=== PATIENT | female | born 1960 | race Caucasian/White ===

== ENCOUNTER → 2018-02-10 | Outpatient (CLI) | payer BC ==
[~2018-02-10] MED LIST: BUDE10.2 IH; FAMO-119 PO; HYDR-34 PO; LEVO500T69 PO; NAPR-1070 PO; NORG1TAB14 PO; OMEP-10 PO; OMEP20TA7 PO; PRD20T PO; bcp; blue goo TP
--- NOTE | 2018-02-10 11:47 | Diagnostic Imaging Report ---
PROCEDURE: US left lower extremity venous. TECHNIQUE: Multiple real-time grayscale images were obtained over the left lower extremity in various projections. Additional duplex Doppler and color Doppler images were also obtained. INDICATION: Left leg pain. EXAMINATION: Grayscale and color Doppler evaluation of the deep veins of the left lower extremity were performed with waveform analysis. FINDINGS: Continuous venous flow is present. No intraluminal filling defect is identified. There is normal compressibility and response to augmentation. No abnormal perivascular fluid collection is identified. IMPRESSION: No ultrasound evidence of left lower extremity deep venous thrombosis. Dictated by: Dictated on workstation # [id number]
== END ==
LOC: RAD 10:12
PROVIDERS: ATTEND Nurse Practitioner Family
DX: M79.89 Other specified soft tissue disorders (principal); L53.9 Erythematous condition, unspecified; K21.9 Gastro-esophageal reflux disease without esophagitis; R53.83 Other fatigue; N39.0 Urinary tract infection, site not specified

== ENCOUNTER → 2020-01-20 | Outpatient (CLI) | payer BC ==
--- NOTE | 2020-01-20 16:11 | Diagnostic Imaging Report ---
INDICATION: Routine screening. COMPARISON: Prior mammogram from 01/18/2018 and 12/25/2016. EXAMINATION: 2D and 3D bilateral screening mammography was performed with CAD. The current study was also evaluated with a Computer Aided Detection (CAD) system. FINDINGS: Scattered fibroglandular densities are identified, bilaterally. The parenchymal pattern is stable. No mass or malignant appearing microcalcifications are seen. Axillae are unremarkable. IMPRESSION: No mammographic features suspicious for malignancy are identified. ACR BI-RADS Category 1: Negative. Result letter will be mailed to the patient. Note: At least 10% of breast cancer is not imaged by mammography. Dictated on workstation # [id number]
== END ==
LOC: RAD 09:00
PROVIDERS: ATTEND Family Medicine
DX: Z12.31 Encounter for screening mammogram for malignant neoplasm of breast (principal)
CPT/HCPCS: 77063; 77067

== ENCOUNTER → 2021-01-22 | Outpatient (CLI) | payer BC ==
--- NOTE | 2021-01-22 12:54 | Diagnostic Imaging Report ---
INDICATION: Routine screening. Comparison is made with prior mammogram from 01/20/2020 and 01/18/2018. 2-D and 3-D bilateral screening mammography was performed with CAD. Scattered fibroglandular densities are identified bilaterally. A tiny nodule has developed in the right breast posterior depth best seen at the nipple line on the CC view. Its difficult to see on the MLO view. No other masses are seen. No malignant-appearing microcalcifications are identified. Axillae are unremarkable. IMPRESSION: BI-RADS 0 Right breast density. Additional views are recommended for further evaluation. ACR BI-RADS Category 0: Incomplete. (Needs additional imaging evaluation). Result letter will be mailed to the patient. Note: At least 10% of breast cancer is not imaged by mammography. Dictated by: Dictated on workstation # [id number]
== END ==
LOC: RAD 09:00
PROVIDERS: ATTEND Family Medicine
DX: Z12.31 Encounter for screening mammogram for malignant neoplasm of breast (principal)
CPT/HCPCS: 77063; 77067

== ENCOUNTER → 2021-02-01 | Outpatient (CLI) | payer BC ==
--- NOTE | 2021-02-01 14:05 | Diagnostic Imaging Report ---
INDICATION: Right breast density. Correlation is made with diagnostic mammogram earlier same day and screening mammogram from 01/22/2021. Sonographic interrogation of the upper right breast was performed. No sonographic abnormality is seen. No solid or cystic mass is detected. IMPRESSION: BI-RADS Category 1 No sonographic abnormality is seen. Tiny density noted mammographically has decreased in size consistent with benign etiology. Is likely a tiny cyst not visible by ultrasound. Patient may return to routine annual screening mammography. ACR BI-RADS Category 1: Negative. Result letter will be mailed to the patient. Note: At least 10% of breast cancer is not imaged by mammography. Dictated by: Dictated on workstation # [id number]
--- NOTE | 2021-02-01 16:11 | Diagnostic Imaging Report ---
INDICATION: Right breast density. Patient presents for additional views. CORRELATION is made with screening study from 01/22/2021. Unilateral right 2-D and 3-D diagnostic mammography was performed with CAD. There is a tiny density approximately 7 cm from the nipple at the 12:00 location. This has decreased slightly in size since screening study. No other masses are detected. No suspicious microcalcifications are seen. IMPRESSION: BI-RADS 0 Tiny circumscribed density upper right breast approximately 12:00 location, 6-7 cm from the nipple. Further evaluation with ultrasound is recommended and will be performed today. ACR BI-RADS Category 0: Incomplete. (Needs additional imaging evaluation). Result letter will be mailed to the patient. Note: At least 10% of breast cancer is not imaged by mammography. Dictated by: Dictated on workstation # [id number]
== END ==
LOC: RAD 13:15
PROVIDERS: ATTEND Nurse Practitioner Family
DX: R92.2 Inconclusive mammogram (principal)
CPT/HCPCS: 76642; 77065; G0279

== ENCOUNTER → 2021-07-22 | Outpatient (CLI) | payer BC ==
--- NOTE | 2021-07-22 15:56 | Diagnostic Imaging Report ---
PROCEDURE: US left lower extremity venous. TECHNIQUE: Multiple real-time grayscale images were obtained over the left lower extremity in various projections. Additional duplex Doppler and color Doppler images were also obtained. INDICATION: Tender knot left medial calf. There is no evidence of left lower extremity DVT. Left lower extremity deep venous system shows normal compressibility with normal response to augmentation and Valsalva. There is a complex fluid collection in the medial left calf extending from the popliteal fossa into the calf. This most likely represents a ruptured Gipson's cyst. IMPRESSION: 1. No evidence of left lower extremity DVT. 2. Probable ruptured Gipson's cyst. Dictated by: Dictated on workstation # [id number]
== END ==
LOC: RAD 14:30
PROVIDERS: ATTEND Nurse Practitioner Family
DX: R22.42 Localized swelling, mass and lump, left lower limb (principal)

== ENCOUNTER → 2021-11-15 | Outpatient (CLI) | payer BC ==
[~2021-11-15] MED LIST changes: +OMEP20TA56 PO; -OMEP20TA7 PO
--- NOTE | 2021-11-15 14:47 | Diagnostic Imaging Report ---
INDICATION: Left posterior knee pain. TIME OF EXAM: 12:11 p.m. FINDINGS: Three views of the left knee demonstrate severe medial and patellofemoral compartmental degenerative change with joint space narrowing and marginal spurring. Lateral compartments fairly well maintained. No fracture, dislocation or effusion is detected. IMPRESSION: Degenerative changes. No acute bony abnormality is detected. Dictated by: Dictated on workstation # [id number]
== END ==
LOC: RAD 11:43
PROVIDERS: ATTEND Nurse Practitioner Family
DX: M17.12 Unilateral primary osteoarthritis, left knee (principal)
CPT/HCPCS: 73562

== ENCOUNTER → 2021-11-28 | Outpatient (CLI) | payer BC ==
--- NOTE | 2021-11-28 15:42 | Diagnostic Imaging Report ---
EXAMINATION: Magnetic resonance imaging of the left knee without intravenous contrast DATE: November 28, 2021. COMPARISON: Left knee radiographs November 15, 2021. INDICATION: 61-year-old female, left knee pain. Difficulty going up and down ladders. TECHNIQUE: Multiplanar, multisequence non contrast enhanced MR imaging was accomplished. FINDINGS: There are some motion limitations of the study. MENISCI: There is a tear of the body and posterior horn of the medial meniscus. There is 4 mm medial meniscal extrusion. There is likely a tear of the posterior horn of the lateral meniscus. LIGAMENTS AND TENDONS: The anterior cruciate ligament is not well seen and likely completely torn. The posterior cruciate ligament is intact. The medial collateral ligament is intact. The iliotibial band, mid third lateral capsular ligament, fibular collateral ligament, biceps femoris tendon and conjoined tendon are intact. The quadriceps tendon and patella ligament are intact. JOINT: There are broad areas of full-thickness patellofemoral compartment joint space loss as well as broad areas of full-thickness cartilage loss involving the medial and lateral compartments. There is no large knee joint effusion. BONE: There is no acute fracture, bone contusion, or evidence of osteonecrosis. BURSAE AND SOFT TISSUES: There is a very small Gipson's cyst. IMPRESSION: 1. Tears of the medial and lateral meniscus as above. 2. Severe tricompartmental osteoarthritis without knee joint effusion. 3. Complete tear of anterior cruciate ligament. Intact posterior cruciate ligament. 4. No acute fracture, bone contusion, or evidence of osteonecrosis. Dictated by: Dictated on workstation # [id number]
== END ==
LOC: RAD 13:15
PROVIDERS: ATTEND Nurse Practitioner Family
DX: S83.242A Other tear of medial meniscus, current injury, left knee, initial encounter (principal); S83.282A Other tear of lateral meniscus, current injury, left knee, initial encounter; M17.12 Unilateral primary osteoarthritis, left knee; S83.512A Sprain of anterior cruciate ligament of left knee, initial encounter; X58.XXXA Exposure to other specified factors, initial encounter
CPT/HCPCS: 73721

== ENCOUNTER → 2022-01-23 | Outpatient (CLI) | payer BC ==
--- NOTE | 2022-01-24 08:22 | Diagnostic Imaging Report ---
3-D bilateral screening mammogram with CAD. CAD is utilized. The current study was also evaluated with a Computer Aided Detection (CAD) system. This study was compared to the prior exams of 01/22/2021, 01/20/2020 and 01/18/2018. At this time there are no current complaints. The current study was also evaluated with a Computer Aided Detection (CAD) system. FINDINGS: There are scattered fibroglandular densities in both breasts which could obscure a lesion. Overall, there does not appear to have been any significant change when compared to the prior exam. No primary or secondary sign of malignancy is noted. IMPRESSION: There is no radiographic evidence for malignancy. ACR BI-RADS Category 1: Negative. Result letter will be mailed to the patient. Note: At least 10% of breast cancer is not imaged by mammography. Dictated by: Dictated on workstation # [id number]
== END ==
LOC: RAD 14:45
PROVIDERS: ATTEND Nurse Practitioner Family
DX: Z12.31 Encounter for screening mammogram for malignant neoplasm of breast (principal)
CPT/HCPCS: 77063; 77067

== ENCOUNTER 2022-10-10 14:13 | Emergency (ER) | payer BC ==
[~2022-10-10] VITALS: Ht 165 cm; Wt 98.0 kg
[2022-10-10 14:34] LABS: BASOPHILS # (AUTO) 0.1 10^3/uL (0.0-0.1); BASOPHILS % (AUTO) 1 % (0-10); EOSINOPHILS # (AUTO) 0.1 10^3/uL (0.0-0.3); EOSINOPHILS % (AUTO) 1 % (0-10); HEMATOCRIT 39 % (35-52); HEMOGLOBIN 13.1 g/dL (11.5-16.0); LYMPHOCYTES % (AUTO) 20 % (12-44); MEAN CORPUSCULAR HEMOGLOBIN 30 pg (25-34); MEAN CORPUSCULAR HGB CONC 33 g/dL (32-36); MEAN CORPUSCULAR VOLUME 90 fL (80-99); MEAN PLATELET VOLUME 11.8 fL (9.0-12.2); MONOCYTES # (AUTO) 0.4 10^3/uL (0.0-1.0); MONOCYTES % (AUTO) 4 % (0-12); NEUTROPHILS # (AUTO) 7.4 10^3/uL (1.8-7.8); NEUTROPHILS % (AUTO) 74 % (42-75); PLATELET COUNT 226 10^3/uL (130-400)
[2022-10-10 14:45] LABS: ALBUMIN 4.2 GM/DL (3.2-4.5); POTASSIUM 3.6 MMOL/L (3.6-5.0)
[2022-10-10 14:46] LABS: CALCIUM 9.2 MG/DL (8.5-10.1)
[2022-10-10 14:47] LABS: TOTAL PROTEIN 7.9 GM/DL (6.4-8.2)
[2022-10-10 14:49] LABS: BILIRUBIN,TOTAL 0.6 MG/DL (0.1-1.0)
[2022-10-10 14:51] LABS: CREATININE SERUM 0.66 MG/DL (0.60-1.30)
[2022-10-10 14:54] LABS: MAGNESIUM 1.8 MG/DL (1.6-2.4)
[2022-10-10] MEDS ORDERED: MECLIZINE 25 MG (ANTIVERT) TAB PO ONE (15:00)
--- NOTE | 2022-10-10 15:10 | ED General ---
General Chief Complaint: Dizziness/Syncope Stated Complaint: DIZZINESS Nursing Triage Note: ARRIVED VIA TO ROOM 09 WITH COMPLAINTS OF DIZZINESS X1 WEEK THAT IS WORSE TODAY. RECENT DX OF ALPHA GAL. Source of Information: Patient Exam Limitations: No Limitations History of Present Illness Date Seen by Provider: October 10, 2022 Time Seen by Provider: 14:28 Initial Comments 62-year-old female presents to the ER with complaints of dizziness. She states that it has been intermittent over the past week or so. She reports that some episodes last at least a day. She reports that this episode started last night. She states that any movement causes it to be worse. She is describes the dizziness as the room is spinning. She took one of her half friend's meclizine tablets the other day, which helped. She states she saw a provider at [facility] who told her she had fluid behind her tympanic membranes. She was prescribed a steroid and Sudafed for this. She also saw her chiropractor thinking that would help, she states that he told her to do Jenny maneuvers. She did this, she is uncertain if it helped. She reports today that she had 2-3 episodes of vomiting. She denies chest pain, shortness of air, abdominal pain. She was recently diagnosed with alpha gal syndrome due to a tick bite which occurred approximately 2 to 3 weeks ago. Allergies and Home Medications Allergies Coded Allergies: No Known Drug Allergies (Unverified , 08/29/15) Patient Home Medication List Home Medication List Reviewed: Yes Budesonide/Formoterol Fumarate (Symbicort 160-4.5 Mcg Inhaler) 10.2 Gm Hfa.aer.ad, 2 PUFF IH DAILY PRN for SHORTNESS OF BREATH, (Reported) Entered as Reported by: TRINI RAY on 08/29/15 0928 Famotidine (Pepcid) 20 Mg Tablet, 20 MG PO BID Prescribed by: BENJAMÍN LUTZ on 12/13/15 220 Hydrocodone Bit/Acetaminophen (Lortab 7.5 Mg Tablet) 1 Each Tablet, 1 EACH PO Q4H Prescribed by: NICKO INFANTE on 09/05/15 1136 Levofloxacin (Levaquin 500 Mg) 500 Mg Tab, 1 EACH PO DAILY, (Reported) Entered as Reported by: SHRUTHI PAIGE on 09/27/10 0931 Meclizine HCl (Meclizine HCl) 25 Mg Tablet, 25 MG PO Q6H Prescribed by: Mindy Contreras on 10/10/22 1632 Naproxen Sodium (Anaprox Ds) 550 Mg Tablet, 550 MG PO BID, (Reported) Entered as Reported by: TRINI RAY on 08/29/15925 Norgestimate-Ethinyl Estradiol (Sprintec 28 Day Tablet) 1 Each Tablet, 1 EACH PO DAILY, (Reported) Entered as Reported by: TRINI RAY on 08/29/15925 Omeprazole (Prilosec 20 Mg) 20 Mg Capsule.dr, 1 TAB PO DAILY, (Reported) Entered as Reported by: TIMO NOVA on 09/25/102258 Omeprazole (Omeprazole) 20 Mg Tablet.dr, 20 MG PO DAILY, (Reported) Entered as Reported by: TRINI RAY on 08/29/15928 Prednisone (Prednisone) 20 Mg Tab, 40 MG PO DAILY Prescribed by: BENJAMÍN LUTZ on 12/13/152202 [bcp] , (Reported) Entered as Reported by: TIMO NOVA on 09/25/102258 [blue goo] , 1 ML TP QID PRN for RASH Prescribed by: BENJAMÍN LUTZ on 12/13/152202 Review of Systems Review of Systems Constitutional: see HPI Past Mnrocwz-Vyrttd-Ezdido Hx Patient Social History Tobacco Use?: No Substance use?: No Alcohol Use?: Yes Alcohol Frequency: Rarely Seasonal Allergies Seasonal Allergies: No Past Medical History Gallbladder Reproductive Disorders: No Female Reproductive Disorders: Denies HIV/AIDS: No Gastroesophageal Reflux Arthritis Loss of Vision: Bilateral Hearing Impairment: Denies Adverse Reaction/Blood Tranf: No Family Medical History No Pertinent Family Hx Physical Exam Vital Signs Vital Signs - First Documented 10/10/22 14:21 Temp 36.2 Pulse 62 Resp 16 B/P (MAP) 156/76 (102) Pulse Ox 97 O2 Delivery Room Air Capillary Refill : Less Than 3 Seconds Height, Weight, BMI Height: 5'5" Weight: 230lbs. 0.0oz. 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 as Tested Skin: Normal Color, Warm/Dry Progress/Results/Core Measures Suspected Sepsis SIRS Temperature: Pulse: 62 Respiratory Rate: 16 Laboratory Tests 10/10/22 14:25: White Blood Count 10.0 Blood Pressure 156 /76 Mean: 102 Laboratory Tests 10/10/22 14:25: Creatinine 0.66, Platelet Count 226, Total Bilirubin 0.6 Results/Orders Lab Results Laboratory Tests Test 10/10/22 14:25 Range/Units White Blood Count 10.0 4.3-11.0 10^3/uL Red Blood Count 4.37 3.80-5.11 10^6/uL Hemoglobin 13.1 11.5-16.0 g/dL Hematocrit 39 35-52 % Mean Corpuscular Volume 90 80-99 fL Mean Corpuscular Hemoglobin 30 25-34 pg Mean Corpuscular Hemoglobin Concent 33 32-36 g/dL Red Cell Distribution Width 14.0 10.0-14.5 % Platelet Count 226 130-400 10^3/uL Mean Platelet Volume 11.8 9.0-12.2 fL Immature Granulocyte % (Auto) 0 % Neutrophils (%) (Auto) 74 42-75 % Lymphocytes (%) (Auto) 20 12-44 % Monocytes (%) (Auto) 4 0-12 % Eosinophils (%) (Auto) 1 0-10 % Basophils (%) (Auto) 1 0-10 % Neutrophils # (Auto) 7.4 1.8-7.8 10^3/uL Lymphocytes # (Auto) 2.0 1.0-4.0 10^3/uL Monocytes # (Auto) 0.4 0.0-1.0 10^3/uL Eosinophils # (Auto) 0.1 0.0-0.3 10^3/uL Basophils # (Auto) 0.1 0.0-0.1 10^3/uL Immature Granulocyte # (Auto) 0.0 0.0-0.1 10^3/uL Sodium Level 137 135-145 MMOL/L Potassium Level 3.6 3.6-5.0 MMOL/L Chloride Level 102 98-107 MMOL/L Carbon Dioxide Level 23 21-32 MMOL/L Anion Gap 12 5-14 MMOL/L Blood Urea Nitrogen 17 7-18 MG/DL Creatinine 0.66 0.60-1.30 MG/DL Estimat Glomerular Filtration Rate 100 BUN/Creatinine Ratio 26 Glucose Level 140 H 70-105 MG/DL Calcium Level 9.2 8.5-10.1 MG/DL Corrected Calcium 9.0 8.5-10.1 MG/DL Magnesium Level 1.8 1.6-2.4 MG/DL Total Bilirubin 0.6 0.1-1.0 MG/DL Aspartate Amino Transf (AST/SGOT) 21 5-34 U/L Alanine Aminotransferase (ALT/SGPT) 31 0-55 U/L Alkaline Phosphatase 112 40-136 U/L Total Protein 7.9 6.4-8.2 GM/DL Albumin 4.2 3.2-4.5 GM/DL My Orders Orders - MINDY CONTRERAS APRN Cbc With Automated Diff (10/10/22 14:28) Magnesium (10/10/22 14:28) Ekg Tracing (10/10/22 14:28) Comprehensive Metabolic Panel (10/10/22 14:28) Meclizine Tablet (Antivert Tablet) (10/10/22 15:00) Diazepam Tablet (Valium Tablet) (10/10/22 16:00) Medications Given in ED Vital Signs/I&O 10/10/22 10/10/22 14:21 16:43 Temp 36.2 Pulse 62 56 Resp 16 16 B/P (MAP) 156/76 (102) 146/77 Pulse Ox 97 97 O2 Delivery Room Air Room Air Capillary Refill : Less Than 3 Seconds Blood Pressure Mean: 102 Progress Note : Progress Note Patient seen and evaluated, resting comfortably in bed, no acute distress. Based on exam and symptoms, work-up initially including CBC, CMP, magnesium, EKG. Labs reviewed. CBC grossly normal. CMP shows elevated glucose 140, patient reports she is prediabetic and is working on lowering her blood glucoses. Magnesium normal at 1.8. Patient reports some improvement after meclizine. Valium also given, patient reports some improvement after valium. We performed jenny maneuvers again, patient reports improvement again. Will discharge with prescription for meclizine. Patient agreeable to discharge plan. Discharge instructions and return precautions provided. ECG Initial ECG Impression Date: October 10, 2022 Initial ECG Impression Time: 14:28 Initial ECG Rate: 56 Initial ECG Rhythm: S.Leonardo Initial ECG Intervals: Normal Initial ECG Impression: Normal Initial ECG Comparisson: No Previous ECG Available Departure Impression Primary Impression: Vertigo Disposition: 01 HOME, SELF-CARE Condition: Stable Departure-Patient Inst. Decision time for Depature: 16:30 Referrals: MARY JO FITCH MD (PCP/Family) Primary Care Physician Patient Instructions: Vertigo (a Type of Dizziness) (DC) Add. Discharge Instructions: Take meclizine as needed for vertigo. Start taking the Sudafed to get rid of the fluid in your ears. Follow-up with your primary care provider if symptoms persist. Return for passing out, chest pain, shortness of air, or any other new, concerning, or worsening symptoms. All discharge instructions reviewed with patient and/or family. Voiced understanding. Scripts Meclizine HCl (Meclizine HCl) 25 Mg Tablet 25 MG PO Q6H, #30 TAB 0 Refills Prov: MINDY CONTRERAS APRN 10/10/22 MINDY CONTRERAS APRN October 10, 2022 15:10
[2022-10-10] MEDS ORDERED: MECL-149 PO (16:32)
[2022-10-10 16:43] VITALS: BP 146/77
== END 2022-10-10 16:43 | disposition home or self-care (01) ==
LOC: EDUNIT# 14:13 → ER 14:15
DX: R42 Dizziness and giddiness (principal)
CPT/HCPCS: 36415; 80053; 83735; 85025; 93005